=== PATIENT | female | born 1995 | race African-American/Black ===

== ENCOUNTER → 2021-07-13 08:07 | Outpatient (BNVA) | payer OTHER, SELFPAY | PROVIDERS: Visit Provider Advanced Practice Midwife | DX: Z32.01 Encounter for pregnancy test, result positive (principal); N92.6 Irregular menstruation, unspecified; R11.0 Nausea; R03.0 Elevated blood-pressure reading, without diagnosis of hypertension; Z3A.00 Weeks of gestation of pregnancy not specified | CPT/HCPCS: 81025; 99202 ==

== ENCOUNTER 2021-07-23 09:39 | Outpatient (REF) | payer OTHER, SELFPAY ==
--- NOTE | ~2021-07-23 | US_ITS ---
EXAMINATION: OBSTETRICAL ULTRASOUND, FIRST TRIMESTER HISTORY: 26-year-old at 9.3 weeks of gestation Viability LMP: 05/18/2021 COMPARISON: None TECHNIQUE: Real time transabdominal imaging with color and M-mode Doppler. FINDINGS: A single, live IUP CRL of 23.8 mm c/w 9.1wks is noted. Heart Rate: 174 beats per minute. Both maternal ovaries are seen and appear normal. GESTATIONAL AGE: 1. GA from LMP: 9.3 wks 2. GA from AUA: 9.1 wks ESTIMATED DATE OF DELIVERY: 1. FATEMEH from LMP: 02/22/2022 2. FATEMEH from AUA: 02/24/2022 US/US OB <= 14 weeks fetus IMPRESSION: 1. Single live IUP 2. Size equals dates 3. Normal ovaries Thank you very much for this referral. This note was generated with a voice recognition program. Please excuse any errors which may have been overlooked during my review of this note. Sometimes these errors may affect the content or meaning of a given sentence.
== END 2021-07-23 09:40 | disposition home or self-care (01) ==
LOC: HO.US 09:39
PROVIDERS: Visit Provider Advanced Practice Midwife
DX: Z34.91 Encounter for supervision of normal pregnancy, unspecified, first trimester (principal); Z3A.09 9 weeks gestation of pregnancy
CPT/HCPCS: 76801

== ENCOUNTER → 2021-07-28 09:40 | Outpatient (BNVA) | payer OTHER, SELFPAY | PROVIDERS: Visit Provider Advanced Practice Midwife | DX: O26.891 Other specified pregnancy related conditions, first trimester (principal); R03.0 Elevated blood-pressure reading, without diagnosis of hypertension; R11.0 Nausea; Z3A.09 9 weeks gestation of pregnancy | CPT/HCPCS: 99212 ==

== ENCOUNTER 2021-08-13 10:33 | Outpatient (REF) | payer OTHER, SELFPAY ==
--- NOTE | ~2021-08-13 | US_ITS ---
EXAMINATION: OBSTETRICAL ULTRASOUND, FIRST TRIMESTER HISTORY: 26-year-old at 12.3 weeks of gestation NT screening COMPARISON: 07/23/2021 TECHNIQUE: Real time transabdominal imaging with color and M-mode Doppler. FINDINGS: A single, live IUP CRL of 55.8 mm c/w 12.2wks is noted. Heart Rate: 143 beats per minute. Normal yolk sac seen. NT was 1.61.mm. NB Present The embryo appears sonographically wnl for this GA. Both maternal ovaries are seen and appear normal. GESTATIONAL AGE: 1. Established GA: 12.3 wks 2. GA from AUA: 12.2 wks ESTIMATED DATE OF DELIVERY: 1. Established FATEMEH: 02/22/2022 2. FATEMEH from AUA: 02/23/2022 US/US OB 1T nuc measure IMPRESSION: 1. A single live IUP 2. Size equals dates 3. NT of 1.6 mm MFM Consultation: I reviewed the ultrasound findings along with significance of NT measurement. The NT of less than 3mm is generally reassuring. However, the sensitivity for T21 detection is only 60%. I reviewed the availability of serum aneuploidy screening which includes cell-free DNA and placental protein based tests. I discussed the sensitivity, false-positive rate, and other limitations associated with each test. I also reviewed the availability of invasive diagnostic tests that are associated small but definite risk of miscarriage. We also reviewed the differences between screening tests and diagnostic tests. After our discussion, she opted for the First trimester screening that is based on cell-free DNA or non-invasive testing (NIPT). The result will be faxed to your office in approximately 7 days. A follow up at 18 weeks for survey has been scheduled. Thank you very much for this referral. Total time 20 minutes. The time spent was devoted to counseling the patient about the disease and diagnosis, coordinating care including reviewing her records, pertinent lab data and studies, as well as discussing diagnostic evaluation and workup, plan therapeutic interventions and future disposition of care. This includes any additional research needed to obtain further information in formulating the plan of care of this patient. This note was generated with a voice recognition program. Please excuse any errors which may have been overlooked during my review of this note. Sometimes these errors may affect the content or meaning of a given sentence.
== END 2021-08-13 10:34 | disposition home or self-care (01) ==
LOC: HO.US 10:33
PROVIDERS: Visit Provider Advanced Practice Midwife
DX: Z36.82 Encounter for antenatal screening for nuchal translucency (principal)
CPT/HCPCS: 76813

== ENCOUNTER 2021-08-19 09:10 | Outpatient (REF) | payer OTHER, SELFPAY ==
[2021-08-19 15:42] LABS: CT PCR NOT DETECTED (Not Detect.); NG PCR NOT DETECTED (Not Detect.)
[2021-08-20 10:01] LABS: BV Int Neg Control Negative (Negative); BV Int Pos Control Positive (Positive)
[2021-09-02 12:36] LABS: HPV 16 RNA DETECTED (NOT DETECTED); HPV mRNA E6/E7 rflx Detected (Not Detected)
== END 2021-08-19 09:11 | disposition home or self-care (01) ==
LOC: HO.LAB 09:10
PROVIDERS: Visit Provider Advanced Practice Midwife
DX: O26.891 Other specified pregnancy related conditions, first trimester (principal); R21 Rash and other nonspecific skin eruption; Z3A.13 13 weeks gestation of pregnancy
CPT/HCPCS: 81003; 87480; 87491; 87510; 87591; 87624; 87625; 87660; 88142; 99212

== ENCOUNTER → 2021-09-24 14:02 | Outpatient (BNVA) | payer OTHER, SELFPAY | PROVIDERS: Visit Provider Advanced Practice Midwife | DX: Z34.82 Encounter for supervision of other normal pregnancy, second trimester (principal); Z3A.18 18 weeks gestation of pregnancy | CPT/HCPCS: 81003; 99212 ==

== ENCOUNTER 2021-10-01 12:37 | Outpatient (REF) | payer OTHER, SELFPAY ==
--- NOTE | ~2021-10-01 | US_ITS ---
EXAMINATION: US OBSTETRICAL CLINICAL INFORMATION: 26-year-old at 19.3 weeks of gestation Screening for anomaly COMPARISON: 08/13/2021 TECHNIQUE: Real-time transabdominal ultrasound was performed using C1-5 megahertz transducer. FINDINGS: A single, active, fetus is seen in transverse presentation. The placenta is anterior without previa, and the amniotic fluid volume is wnl. MEASUREMENTS: 1. Biparietal Diameter: 4.5 cm; 19.5 wks 2. Occipital Frontal Diameter: 6.0 cm 3. Head Circumference: 16.7 cm; 19.3 wks 4. Abdominal Circumference: 14.5 cm; 19.6 wks 5. Femur Length: 2.9 cm; 19.0 wks 6. Humerus Length: 2.8 cm; 19.1 wks 7. Tibia Length: 2.5 cm; 19.1 wks 8. Ulna Length: 2.6 cm; 19.3 wks 9. Lateral ventricle: 0.7 cm 10. Cerebellum: 1.9 cm; 19.2 wks 11. Cisterna Magna: 0.4 cm 12. Nuchal Fold: 4.1 mm 13. Heart Rate: 147 beats per minute Rt ovary: normal Lt ovary: normal Cervical length 4.3 cm on T/A. GESTATIONAL AGE: 1. Established GA: 19.3 wks 2. GA from [facility]: 19.4 wks ESTIMATED DATE OF DELIVERY: 1. Established FATEMEH: 02/22/2022 2. FATEMEH from [facility]: 02/21/2022 ANATOMY: The visualized anatomy includes but not limited to: 1. Cranium: Normal 2. Intracranial anatomy: cavum septum pellucidi, lateral ventricles, choroid plexus, cerebellum, posterior fossa, third and fourth ventricles. 3. face: orbits, lip/palate, profile, nasal bone 4. Heart: four-chamber view of the heart, ventricular septum, foramen ovale, pulmonary vein, left and right outflow tracts, three-vessel view, 3 vessel trachea view, aortic and ductal arches, situs.. 5. Diaphragm: Normal 6. Abdominal wall: Normal 7. Cord Insertion: Normal 8. Spine: Cervical, thoracic, lumbar, sacral. 9. Stomach: Normal size and shape 10. Right Kidney: Normal 11. Left Kidney: Normal 12. 3 vessel cord: Normal 13. Upper extremity: Open hands, fifth digit. 14. Lower extremity: Tibia, fibula, bilateral feet. 15. Bladder: Normal 16. Genitalia: Male, patient aware US/US OB /maternal detail IMPRESSION: 1. Single, living, intrauterine with appropriate biometry. 2. Normal survey DISCUSSION: I reviewed today's ultrasound findings. We discussed the limitations of ultrasound in diagnosing aneuploidy and other congenital abnormalities. I reviewed the differences between screening test and diagnostic test. Amniocentesis was discussed and declined. She was informed that the baseline incidence of congenital abnormalities is approximately 3-5%. Not all these conditions are diagnosable in utero. RECOMMENDATIONS: 1. Follow-up when necessary. Thank you for allowing me to participate in her care. Total time 30 minutes. The time spent was devoted to counseling the patient about the disease and diagnosis, coordinating care including reviewing her records, pertinent lab data and studies, as well as discussing diagnostic evaluation and workup, plan therapeutic interventions and future disposition of care. This includes any additional research needed to obtain further information in formulating the plan of care of this patient. This note was generated with a voice recognition program. Please excuse any errors which may have been overlooked during my review of this note. Sometimes these errors may affect the content or meaning of a given sentence.
[2021-10-01 13:26] LABS: Hematocrit 38.9 % (37.0-47.0); Hemoglobin 12.7 g/dl (12.0-16.0); Mean Corpuscular HGB Conc 32.6 g/dl (31.0-35.0); Mean Corpuscular Hemoglobin 30.9 pg (27.0-33.0); Mean Corpuscular Volume 94.6 fL (80.0-98.0); Mean Platelet Volume 10.8 fL (9.4-12.3); Platelet Count 276 X10*3/uL (160-400); Red Blood Count 4.11 X10*6/uL (4.20-5.50); Red Cell Distribution Width 13.3 % (11.0-16.0); White Blood Count 13.3 X10*3/uL (4.8-10.8)
[2021-10-01 13:54] LABS: Alanine Aminotransferase 17 U/L (0-31); Aspartate Amino Transferase 16 U/L (5-31); Blood Urea Nitrogen 5 mg/dL (9-16); Glucose 1 Hour PP 50gm Dose 79 mg/dL (60-140)
[2021-10-01 14:05] LABS: Amphetamine Screen Urine Not Detected (Not Detect); Barbiturates, Urine Not Detected (Not Detect); Benzodiazepines Screen Urine Not Detected (Not Detect); Cannabinoid Screen Urine Not Detected (Not Detect); Cocaine Screen Urine Not Detected (Not Detect); Fentanyl, urine Not Detected (Not Detect); Opiate Screen Urine Not Detected (Not Detect); Phencyclidine Screen Urine Not Detected (Not Detect)
[2021-10-01 14:15] LABS: Creatinine Urine 36.19 mg/dL; Total Protein Urine Random < 7 mg/dL (<12)
[2021-10-01 14:33] LABS: Syphilis Screen Nonreactive (Nonreactive)
[2021-10-02 18:16] LABS: Rubella IgG Antibody <0.90 Index; Varicella IgG Antibody <135.00 index
[2021-10-04 04:39] LABS: ~HepC Num1 0.07 S/CO (0.00-0.79); ~Hepatitis C Antibody Nonreactive (Nonreactive)
[2021-10-04 04:46] LABS: HBsAGNum1 0.22 S/CO (0.00-0.99); HIV AB/AG Nonreactive (Nonreactive); HIV Num 1 0.05 S/CO (0.00-0.99); Hepatitis B Surface Antigen Negative (Negative)
== END 2021-10-01 12:38 | disposition home or self-care (01) ==
LOC: HO.US 12:37
PROVIDERS: Advanced Practice Midwife; Visit Provider Obstetrics & Gynecology
DX: O35.9XX0 Maternal care for (suspected) fetal abnormality and damage, unspecified, not applicable or unspecified (principal); O26.892 Other specified pregnancy related conditions, second trimester; R51.9 Headache, unspecified; R03.0 Elevated blood-pressure reading, without diagnosis of hypertension; Z3A.19 19 weeks gestation of pregnancy
CPT/HCPCS: 76811; 80307; 84156; 84450; 84460; 84520; 85027; 86762; 86780; 86787; 86803; 86850; 86900; 86901; 87086; 87340; 87389

== ENCOUNTER 2021-12-22 10:07 | Outpatient (REF) | payer OTHER, SELFPAY ==
[2021-12-22 13:25] LABS: Hematocrit 34.5 % (37.0-47.0); Hemoglobin 11.3 g/dl (12.0-16.0); Mean Corpuscular HGB Conc 32.8 g/dl (31.0-35.0); Mean Corpuscular Hemoglobin 29.9 pg (27.0-33.0); Mean Corpuscular Volume 91.3 fL (80.0-98.0); Mean Platelet Volume 10.4 fL (9.4-12.3); Platelet Count 247 X10*3/uL (160-400); Red Blood Count 3.78 X10*6/uL (4.20-5.50); Red Cell Distribution Width 12.9 % (11.0-16.0); White Blood Count 14.1 X10*3/uL (4.8-10.8)
[2021-12-22 13:49] LABS: Alanine Aminotransferase 11 U/L (0-31); Aspartate Amino Transferase 13 U/L (5-31); Blood Urea Nitrogen 6 mg/dL (9-16); Glucose 1 Hour PP 50gm Dose 89 mg/dL (60-140)
[2021-12-22 14:24] LABS: Syphilis Screen Nonreactive (Nonreactive)
[2021-12-22 14:47] LABS: Creatinine Urine 147.61 mg/dL; Protein/Creatinine Ratio, Ur 0.08 (<0.2); Total Protein Urine Random 12 mg/dL (<12)
[2021-12-22 14:51] LABS: Amphetamine Screen Urine Not Detected (Not Detect); Barbiturates, Urine Not Detected (Not Detect); Benzodiazepines Screen Urine Not Detected (Not Detect); Cannabinoid Screen Urine Not Detected (Not Detect); Cocaine Screen Urine Not Detected (Not Detect); Fentanyl, urine Not Detected (Not Detect); Opiate Screen Urine Not Detected (Not Detect); Phencyclidine Screen Urine Not Detected (Not Detect)
== END 2021-12-22 10:08 | disposition home or self-care (01) ==
LOC: HO.LAB 10:07
PROVIDERS: Visit Provider Advanced Practice Midwife
DX: O16.3 Unspecified maternal hypertension, third trimester (principal); O26.899 Other specified pregnancy related conditions, unspecified trimester; O47.9 False labor, unspecified; O36.63X0 Maternal care for excessive fetal growth, third trimester, not applicable or unspecified; R51.9 Headache, unspecified; Z3A.30 30 weeks gestation of pregnancy; Z20.2 Contact with and (suspected) exposure to infections with a predominantly sexual mode of transmission
CPT/HCPCS: 80307; 81003; 84156; 84450; 84460; 84520; 85027; 86780; 90471; 90715; 99212

== ENCOUNTER 2021-12-24 08:36 | Outpatient (REF) | payer OTHER, SELFPAY ==
--- NOTE | ~2021-12-24 | US_ITS ---
EXAMINATION: OBSTETRICAL ULTRASOUND, Follow up HISTORY: 26-year-old at 31.3 weeks of gestation Size date discrepancy COMPARISON: 10/01/2021 TECHNIQUE: Real time transabdominal imaging with color and M-mode Doppler. PRESENTATION: Vertex PLACENTA LOCATION: Anterior without previa AMNIOTIC FLUID: YSABEL 16.7 cm MEASUREMENTS: 1. Biparietal Diameter: 7.9 cm; 31.4 wks 2. Head Circumference: 30.0 cm; 33.2 wks 3. Abdominal Circumference: 27.0 cm; 31.1 wks 4. Femur Length: 6.0 cm; 31.1 wks 5. Heart Rate: 146 beats per minute WEIGHT: EFW: 1732 grams (3 lbs 13 oz) -- 33 %. BIOPHYSICAL PROFILE: Motion: 2 Tone: 2 Breathin Amniotic Fluid: 2 Total score: 8/8 GESTATIONAL AGE: 1. Established GA: 31.3 wks 2. GA from A: 31.6 wks ESTIMATED DATE OF DELIVERY: 1. Established FATEMEH: 02/22/2022 2. FATEMEH from [facility]: 02/19/2022 US/US OB follow up IMPRESSION: 1. A single active fetus is in vertex presentation 2. Size equals dates 3. Reassuring biophysical profile Thank you very much for this referral. This note was generated with a voice recognition program. Please excuse any errors which may have been overlooked during my review of this note. Sometimes these errors may affect the content or meaning of a given sentence.
== END 2021-12-24 08:37 | disposition home or self-care (01) ==
LOC: HO.US 08:36
PROVIDERS: Visit Provider Advanced Practice Midwife
DX: O36.63X0 Maternal care for excessive fetal growth, third trimester, not applicable or unspecified (principal); O26.843 Uterine size-date discrepancy, third trimester; Z3A.31 31 weeks gestation of pregnancy
CPT/HCPCS: 76816

== ENCOUNTER → 2021-12-29 10:19 | Outpatient (BNVA) | payer OTHER, SELFPAY | PROVIDERS: Visit Provider Advanced Practice Midwife | DX: O99.013 Anemia complicating pregnancy, third trimester (principal); D64.9 Anemia, unspecified; Z3A.31 31 weeks gestation of pregnancy | CPT/HCPCS: 81003; 99212 ==

== ENCOUNTER → 2022-01-21 14:27 | Outpatient (BNVA) | payer OTHER, SELFPAY | PROVIDERS: Visit Provider Advanced Practice Midwife | DX: O09.293 Supervision of pregnancy with other poor reproductive or obstetric history, third trimester (principal); Z3A.35 35 weeks gestation of pregnancy | CPT/HCPCS: 81003; 99212 ==

== ENCOUNTER 2022-02-03 12:42 | Outpatient (REF) | payer OTHER, SELFPAY ==
[2022-02-04 04:58] LABS: CT PCR NOT DETECTED (Not Detect.); NG PCR NOT DETECTED (Not Detect.)
== END 2022-02-03 12:43 | disposition home or self-care (01) ==
LOC: HO.LAB 12:42
PROVIDERS: Visit Provider Advanced Practice Midwife
DX: Z34.93 Encounter for supervision of normal pregnancy, unspecified, third trimester (principal)
CPT/HCPCS: 81003; 87081; 87147; 87491; 87591; 99212

== ENCOUNTER → 2022-02-23 11:35 | Outpatient (BNVA) | payer OTHER, SELFPAY | PROVIDERS: Visit Provider Advanced Practice Midwife | DX: Z34.93 Encounter for supervision of normal pregnancy, unspecified, third trimester (principal); Z3A.39 39 weeks gestation of pregnancy | CPT/HCPCS: 99212 ==

== ENCOUNTER 2022-09-29 13:50 | Outpatient (REF) | payer OTHER, SELFPAY | END 2022-09-29 13:51 | disposition home or self-care (01) | LOC: HO.LNP 13:50 | PROVIDERS: Visit Provider Obstetrics & Gynecology | DX: R87.613 High grade squamous intraepithelial lesion on cytologic smear of cervix (HGSIL) (principal); Z32.02 Encounter for pregnancy test, result negative | CPT/HCPCS: 57454; 81025; 88305; 88342; 88360 ==

== ENCOUNTER → 2023-01-12 14:04 | Outpatient (BNVA) | payer OTHER, SELFPAY | PROVIDERS: Visit Provider Obstetrics & Gynecology | DX: Z30.09 Encounter for other general counseling and advice on contraception (principal); N87.1 Moderate cervical dysplasia | CPT/HCPCS: 99212 ==

== ENCOUNTER 2025-02-13 08:31 | Emergency (ER) | payer OTHER, SELFPAY ==
[2025-02-13 08:34] VITALS: BP 140/89; PULSE 91; RESP 18; TEMP 36.4; O2SAT 100; BMI 36.5
--- NOTE | 2025-02-13 08:50 | ED.GENADULT ---
HPI - General Adult General Chief complaint: General Medical Stated complaint: tounge issue black Time Seen by Provider: 02/13/25 08:40 Source: patient Mode of arrival: ambulatory Limitations: no limitations History of Present Illness ED Provider: HPI narrative: Patient presented with discoloration of her tongue, she states his black, and does not like the taste, she has history of GERD and has been using Pepto-Bismol. No other symptoms reported. Related Data Previous Rx's ?Medication ?Instructions ?Recorded omeprazole 20 mg capsule,delayed 20 mg PO DAILY #60 caps 02/13/25 release Allergies Allergy/AdvReac Type Severity Reaction Status Date / Time shellfish derived (SHELLFISH Allergy Unknown DIFFICULTY Verified 02/13/25 08:35 DERIVED) BREATHING pollen Allergy Unknown Unknown Uncoded 01/12/23 14:19 Review of Systems Constitutional: Constitutional: [facility] Past Medical History Medical History HGSIL (high grade squamous intraepithelial dysplasia) hemorrhage Surgical History Hx of bilateral breast reduction surgery Family History Family History Paternal Grandfather Diabetes mellitus Paternal Grandmother Diabetes mellitus Social History Social History Household Members: Family and Children Housing: House Are you a primary acute care registered nurse to a significant other at home: No Do you presently have visiting nurse or other home services: No Alcohol intake: never Patient Tobacco Use Status: Never used Tobacco Agree to transfusion: Yes Do you have a plan to hurt others: No Plan service: No Current occupational status: unemployed Physical Exam ED Vital Signs: Vital Signs - 24 hr 02/13/25 08:34 Temperature 97.5 F Pulse Rate 91 Respiratory Rate 18 Blood Pressure 140/89 H Pulse Oximetry 100 Oxygen Delivery Method Room Air BMI result Body Mass Index 36.5 Const Other: Overall well-appearing, no angioedema of the tongue or lips, she has blackish discoloration to her tongue, uvula midline Speaking full sentences No stridor no wheezing Alert and oriented x4 Medical Decision Making Medical Decision Making MDM Narrative: Patient is on Pepto-Bismol presenting with expected side effect of discoloration, I also instructed her that she will have black stool, no evidence for angioedema, tonsillitis, no risk factors for upper GI lower GI bleed, I did discuss some dietary changes and we will place her on medications for acid reflux Differential Diagnosis Differential Diagnoses: The differential diagnosis associated with the presentation includes (See above) Discharge Plan Discharge Clinical Impression: Acid reflux disease, Medication reaction Patient Disposition: Home, Self-Care Additional Instructions: As discussed Pepto-Bismol can this color body of fluids, also expect to have black stool Meanwhile on starting you on omeprazole 20 mg p.o. at bedtime, we spoke about dietary changes, follow up with the PCP and other issues or concerns come back to the ER Prescriptions: New omeprazole 20 mg capsule,delayed release(DR/EC) 20 mg PO DAILY Qty: 60 0RF Print Language: Yi
[2025-02-13 08:56] VITALS: BP 140/89; PULSE 91; RESP 18; TEMP 36.4; O2SAT 100
--- OUTSIDE RECORDS SUMMARY | 2025-02-13 09:25 | XMS_ITS ---
Author Name [facility] Unknown Results Test Name/Text Value Interpretation Date Range Source GFR/BSA.pred SerPlBld [id number] >90.0 01/04/2025 59 - [facility] BUN SerPl-mCnc 14.0 mg/dL 01/04/2025 8 - [address] BUN/Creat SerPl 20.0 Ratio 01/04/2025 10 - 25 HH CCT Creat SerPl-mCnc 0.7 mg/dL 01/04/2025 0.4 - 1.1 HH CCT Anion Gap Bld-sCnc 10.0 01/04/2025 7 - 17 [facility] Potassium SerPl-sCnc 4.7 mmol/L 01/04/2025 3.4 - 5 .3 [facility] Calcium SerPl-mCnc 8.8 mg/dL 01/04/2025 8.7 - 10.5 [facility] Sodium SerPl-sCnc 139.0 mmol/L 01/04/2025 136 - 14 5 [facility] Chloride SerPl-sCnc 107.0 mmol/L 01/04/2025 98 - 1 07 [facility] Glucose SerPl-mCnc 90.0 mg/dL 01/04/2025 65 - 99 [facility] CO2 SerPl-sCnc 22.0 mmol/L 01/04/2025 22 - 33 HH CCT Magnesium SerPl-mCnc 2.1 mg/dL 01/04/2025 1.6 - 2. 7 [facility] RBC num Bld Auto 4.38 Mil/uL 01/04/2025 4 - 5.4 [facility] Hgb Bld-mCnc 11.8 g/dL 01/04/2025 11.7 - 15.7 [facility] T Basophils/leuk NFr Bld Auto 0.5 % 01/04/2025 [facility] Eosinophil num Bld Auto 0.21 Thou/uL 01/04/2025 0 - 0.7 [facility] Imm Granulocytes num Bld Auto 0.06 Thou/uL 01/04/2025 0 - 0.1 [facility] WBC num Bld Auto 12.3 Thou/uL Above high normal 01/04/2025 4 - 11 [facility] PMV Bld Auto 9.5 fL 01/04/2025 7.5 - 12.5 [facility] MCV RBC Auto 86.0 fL 01/04/2025 80 - 100 [facility] MCHC RBC Auto-mCnc 31.2 g/dL 01/04/2025 30 - 36 [facility] Hct VFr Bld Auto 37.8 % 01/04/2025 35 - 47 HH CCT MCH RBC Qn Auto 26.9 pg 01/04/2025 26 - [address] Neutrophils/leuk NFr Bld Auto 62.8 % 01/04/2025 [facility] Imm Granulocytes/leuk NFr Bld Auto 0.5 % 01/04/2025 [facility] Basophils num Bld Auto 0.06 Thou/uL 01/04/2025 0 - 0.2 [facility] Monocytes num Bld Auto 1.19 Thou/uL 01/04/2025 0.2 - 1.5 [facility] Lymphocytes/leuk NFr Bld Auto 24.8 % 01/04/2025 [facility] Monocytes/leuk NFr Bld Auto 9.7 % 01/04/2025 [facility] Lymphocytes num Bld Auto 3.04 Thou/uL 01/04/2025 1.5 - 4.5 [facility] Eosinophil/leuk NFr Bld Auto 1.7 % 01/04/2025 [facility] RDW RBC Auto-Rto 14.6 % Above high normal 01/04/2025 11.5 - 14.5 [facility] Neutrophils num Bld Auto 7.72 Thou/uL Above high normal 01/04/2025 2 - 7.5 [facility] Platelet num Bld Auto 282.0 Thou/uL 01/04/2025 150 - 450 [facility] History of Medication Use Medication Directions Dispensed Refills Start Date End Date Stat penicillin v potassium (VEETID) 500 MG tablet Take 1 tablet (500 mg total) by mouth 2 (two) times a day. 08/11/2022 09/14/2022 active Problems Problem Status Onset Date Problem Type Date of Resoluti on Source [facility] throat [facility] St[facility] active EncounterDiagnosisAct [facility] Encounter for screening laboratory testing for COVID-19 virus active EncounterDiagnosisAct [facility] Encounters Encounter Type Encounter Reason Primary Diagnosis Location Date Emergency Abnormal uterine and vaginal bleeding, unspecified Abnormal uterine and vaginal bleeding, unspecified [facility] 01/04/2025 Ambulatory Contact with and (suspected) exposure to covid-19 [facility] 09/03/2022 Ambulatory Acute pharyngiti s, unspecified [facility] 08/11/2022 Ambulatory Acute pharyngiti s, unspecified [facility] 08/03/2022 Care Team Organization Name Specialty Phone Email Start Date End [facility] [place] [facility] 11/21/2023 [facility] Ar Viera Primary Care 04/26/2023 024 [facility] PCP,No Primary Care 08/03/2022 02/02/2025 [facility] NO PCP Primary Care 08/03/2022 08/03/2022 [facility] CAROL DELUCA Primary Care 08/01/2022 03/11/[address] [facility] 05/01/2022
--- OUTSIDE RECORDS SUMMARY | 2025-02-13 09:25 | XMS_ITS | Clinical Summary ---
Author Organization Patient Business [facility] Address [address] [place] [address] Care Team Providers Care Digital Computer Operator Name Role Phone Ar Viera MD Primary Care Provider [phone] Allergies No known active allergies Medications No known medications Active Problems Problem Noted Date Diagnosed Date Palpitation 11/01/2024 Hypertension 11/01/2024 Obesity (BMI 30-39.9) 08/03/2023 Vitamin D deficiency 08/03/2023 Encounters Date Type Department Care Team Description 12/12/2024 7:00 AM EDT Ancillary Procedure [facility] Cardiology [facility] [address] [place] [phone] Palpitation; Abnormal ECG 12/02/2024 Telephone [facility] Cardiology [facility] [address] [place] [phone] Cody Ibanez MD Results 11/21/2024 10:30 AM EDT Ancillary Procedure [facility] Cardiology [facility] [address] [place] [phone] Palpitation from Last 3 Months Surgical History Surgery Date Site/Laterality Comments BREAST REDUCTION 2017 PROCEDURE: [place] BREAST REDUCTION OTHER SURGICAL HISTORY N/A PROCEDURE: [place] MULTIFETAL REDUCTION Medical History Medical History Date Comments Obesity DX:Obesity History of severe pre-eclampsia 08/03/2023 DX:History of severe pre-eclampsia Anxiety Lower back pain Family History Medical History Relation Name Comments Diabetes Maternal Grandfather Breast cancer Maternal Grandmother Diabetes Paternal Grandfather Diabetes Paternal Grandmother Relation Name Status Comments Father Alive Maternal Grandfather Maternal Grandmother Mother Alive Paternal Grandfather Paternal Grandmother Social History Tobacco Use Types Packs/Day Years Used Date Smoking Tobacco: Never Smokeless Tobacco: Never Tobacco Cessation:Counseling Given: Not Answered Alcohol Use Standard Drinks/Week Comments Yes 0 (1 standard drink = 0.6 oz pur e alcohol) occ Comments Unknown Sex and Gender Information Value Date Recorded Sex Assigned at Female 07/04/2023 4:48 PM EST Legal Sex Female 9:51 AM EST Gender Identity Female 07/04/2023 4:48 PM EST Sexual Orientation Straight 07/04/2023 4: 48 PM EST Obstetrics History Last Filed Vital Signs Vital Sign Reading Time Taken Comments Blood Pressure 130/90 12/12/2024 7:34 AM EDT Pulse 63 11/01/2024 2:45 PM EDT Temperature - - Respiratory Rate - - Oxygen Saturation 99% 11/01/2024 2:45 PM EDT Inhaled Oxygen Concentration - - Weight 89.4 kg (197 lb) 12/12/2024 7:34 AM EDT Height 157.5 cm (5' 2 ) 12/12/2024 7:34 AM EDT Body Mass Index 36.03 12/12/2024 7:34 AM EDT Plan of Treatment Upcoming Encounters Date Type Department Care Team (Late st Contact Info) Description 03/12/2025 11:30 AM EDT Office Visit Internal Medicine - [place] [facility] [address] [place] [phone] Ar Viera MD [address] [place] [phone] Health Maintenance Due Date Last Done Comments Hepatitis B Vaccines (1 of 3 - 19+ 3-dose series) 2014 Cervical Cancer Screening: P ap Smear 2016 COVID-19 Vaccine (2023-2 5 season) 2024 Depression Screening 07/24/2024 Hypertension/CHF/CAD Annual BMP Blood Test 11/01/2024 08/03/2023 Influenza Vaccine (#1) 2025 9, 2018, 06/04/2015 Social Influencers of Health Screening 10/03/2025 10/03/2024 Cholesterol Screening (Lipid Panel) 08/03/2028 08/03/2023 DTaP,Tdap,and Td Vaccines (3 - Td or Tdap) 12/23/2031 12/22/2021, 04/23/2018 MMR Vaccines Aged Out 02/24/2022, 09/08/2015 No longer eligible based on patient's age to complete this topic HIV Screening Completed 08/03/2023 Hepatitis C Screening Completed 08/03/2023 HIB Vaccines Aged Out No longer eligi ble based on patient's age to complete this topic HPV Vaccines Aged Out No longer eligi ble based on patient's age to complete this topic Hepatitis A Vaccines Aged Out No long er eligible based on patient's age to complete this topic IPV Vaccines Aged Out No longer eligi ble based on patient's age to complete this topic Meningococcal ACWY Vaccine Aged Out N o longer eligible based on patient's age to complete this topic Meningococcal B Vaccine Aged Out No l onger eligible based on patient's age to complete this topic Pneumococcal Vaccine: Pediatrics (0 to 5 Years) and At-Risk Patients (6 to 49 Years) Aged Out No longer eligible b ased on patient's age to complete this topic RSV Immunization Patients Under 20 months Aged Out No longer eligible b ased on patient's age to complete this topic Varicella Vaccines Aged Out No longer eligible based on patient's age to complete this topic Procedures Procedure Name Priority Date/Time Associated Diagnosis Comments TRANSTHORACIC ECHOCARDIOGRAM (TTE) COMPLETE Routine 12/12/2024 7:34 AM EDT Palpitation Abnormal ECG CARDIAC HOLTER MONITOR (REPORT GENERATED IN HOUSE) Routine 11/21/2024 10:42 AM EDT Palpitation HEPATITIS C SCREENING Routine 08/03/2023 HIV SCREENING Routine 08/03/2023 ANNUAL BMP BLOOD TEST Routine 08/03/2023 LIPID PANEL Routine 08/03/2023 from Last 3 Months or Most Recently Relevant to Health Maintenance Results * (ABNORMAL) TRANSTHORACIC ECHOCARDIOGRAM (TTE) COMPLETE (12/12/2024 7:34 AM EDT) Left Atrium Minor [place] 5.2 cm CV PACS Left Atrium Major [place] 4.8 cm CV PACS LA Area Sys (A2C) 18 cm2 CV PACS LA Area Sys (A4C) 15 cm2 CV PACS LA Volume (BP) 47 mL CV PACS RA Area 11.5 cm2 CV PACS RA 2D Volume 26 mL CV PACS AV Mean Gradient 4 mmHg CV PACS Ao VTI 25.4 cm CV PACS AV Peak Jorje 1.4 m/s CV PACS AV Peak Gradient 8 mmHg CV PACS AV Area Continuity Equation 2.6 cm2 CV PACS AV Area Peak Velocity 2.6 cm2 CV PACS Aortic Sinus Valsalva 2.9 cm CV PACS Ascending Aorta 2.7 cm CV PACS IVC Proximal 1.5 cm CV PACS IVSD 0.8 0.6 - 0.9 cm CV PACS LVIDD 4.4 3.8 - 5.2 cm CV PACS LVIDS 2.7 2.2 - 3.5 cm CV PACS LVOT Diameter 2.0 cm CV PACS LVOT Mean Grad 2 mmHg CV PACS LVOT Peak VTI 21.3 cm CV PACS LVOT Mean Jorje 0.7 m/s CV PACS LVOT Peak Jorje 1.1 m/s CV PACS LVOT Peak Gradient 5 mmHg CV PACS LVPWD 0.8 0.6 - 0.9 cm CV PACS MV E' Tissue Velocity Lateral 16 cm/s CV PACS MV E' Tissue Velocity Septal 10 cm/s CV PACS LVOT Area 3.1 cm2 CV PACS LVOT Stroke Volume 67 mL CV PACS E Wave Deceleration Time 194 119 - 242 ms CV PACS MV Peak A Jorje 0.61 m/s CV PACS MV Peak E Jorje 0.94 m/s CV PACS PV Acceleration Time 144 ms CV PACS PV Peak Velocity 1.3 m/s CV PACS PV Peak Gradient 7 mmHg CV PACS RV Diastolic Basal Dimension 3.5 2.5 - 4.1 cm CV PACS RV S' 15 cm/s CV PACS TAPSE 21 mm CV PACS E/E' Ratio Septal 9 CV PACS E/E' Ratio Averaged 8 CV PACS Relative Wall Thickness ratio 0.36 CV PACS LVOT:AV VTI Index 0.84 CV PACS FS 39 % CV PACS LV Mass 2D 109 g CV PACS LVOT flow 220 mL/s CV PACS AV Velocity Ratio 0.79 CV PACS E/A Ratio 1.5 CV PACS E/E' Ratio Lateral 6 CV PACS BSA 1.98 m2 CV PACS LA Volume Index (BP) 25 mL/m2 CV PACS LVIDD Index 2.32 cm/m2 CV PACS LVIDS Index 1.42 cm/m2 CV PACS LV Mass Index 2D 58 44 - 88 g/m2 CV PACS LVOT Stroke Index 35 mL/m2 CV PACS RA 2D Volume Index 14(A) 15 - 27 mL/m2 CV PACS CORAL Index (VTI) 1.39 cm2/m2 CV PACS CORAL Index (Pk Jorje) 1.37 cm2/m2 CV PACS Ascending Aorta Index 1.42 cm/m2 CV PACS Est. RA Pressure 3 mmHg CV PACS Anatomical Region Laterality Modality Ultrasound Narrative 12/12/2024 4:24 PM EDT Left Ventricle: Left ventricle cavity size is normal. Wall thickness is normal. Systolic function is normal with an ejection fraction of 60-65%. There are no regional LV wall motion abnormalities. There is no diastolic dysfunction. Left Atrium: Left atrium volume index is normal. Right Ventricle: Right ventricle cavity appears normal. Systolic function is normal. Right Atrium: Right atrium cavity is normal. No hemodynamically significant valvular heart disease. Left Ventricle Left ventricle cavity size is normal. Wall thickness is normal. Systolic function is normal with an ejection fraction of 60-65%. There are no regional LV wall motion abnormalities. There is no diastolic dysfunction. Right Ventricle Right ventricle cavity appears normal. Systolic function is normal. Left Atrium Left atrium volume index is normal. Right Atrium Right atrium cavity is normal. IVC/SVC RA pressures is estimated to be 3 mmHg (IVC diameter <21 mm and decreases >50% during inspiration). Mitral Valve Mitral valve structure is normal. There is trace regurgitation. There is no evidence of mitral valve stenosis. Tricuspid Valve Tricuspid valve structure is normal. There is trace regurgitation. Cannot assess RVSP. Aortic Valve The aortic valve is trileaflet. There is no regurgitation or stenosis. Pulmonic Valve Visualized portions of the pulmonic valve appear normal. There is trace pulmonic valve regurgitation. Ascending Aorta The aorta appears normal in size. Pericardium Pericardium appears normal. Study Details Overall the study quality was adequate. Result [facility] Audrey Olivera NP CV ECHO PROCEDURES Final Resul t * CARDIAC HOLTER MONITOR (REPORT GENERATED IN HOUSE) (11/21/2024 10:42 AM EDT) Anatomical Region Laterality Modality Cardiac Diagnost ic Narrative 11/27/2024 8:34 AM EDT [facility] DIAGNOSTIC TESTING DEPARTMENT [address] [place] [address] TEL: FAX: Type of test: 48 hour Holter Monitor Date of test: 11/21/24 Ordering provider: Cody Ibanez MD Reason for Test: Palpitations Impression: 1: Normal Sinus Rhythm with periods of Sinus Tachycardia. 2: Heart rate range was 50- 146 bpm with an average of 88 bpm. Total time in Sinus Tachycardia was 13 hrs 31 mins. 3: Rare PACs with one atrial pair. Rare PVCs with one 4-beat ventricular run. 4: No pauses noted. Longest R-R 1.3 sec. 5: Diary returned with episodes of palpitations and SOB noted. EKG at those times showed Sinus Rhythm at 73- 112 bpm. One episode had a 4-beat ventricular run. Result [facility] Cody Ibanez MD CV CARDIAC SERVICES PROCEDURES Final Result * Annual BMP Blood Test (08/03/2023) Pathologist [facility], [facility] Annual BMP Blood Test abstracted Historical Provider HEALTH MAINTENANCE Final Result * HIV Screening (08/03/2023) Pathologist [facility] HIV Screening abstracted Result [facility] Historical Provider HEALTH MAINTENANCE Final Result * Hepatitis C Screening (08/03/2023) Hepatitis C Screening abstracted Historical Provider HEALTH MAINTENANCE Final Result * (ABNORMAL) Lipid panel (08/03/2023) LDL/HDL Ratio 4 0 - 4 Triglycerides 93 0 - 150 mg/dL Cholesterol 186 0 - 200 mg/dL HDL 50 >=40 mg/dL LDL Cholesterol 118(A) 0 - 100 mg/dL Blood Venous blood specimen / Unknown Historical Provider LAB BLOOD ORDERABLES Leonor l Result from Last 3 Months or Most Recently Relevant to Health Maintenance Insurance [facility] [place] [phone] Care Teams Digital Computer Operator Relationship Specialty Start Date End Date Ar Viera MD [address] [place] [address] [place] [id number] PCP - General 03/14/23
--- OUTSIDE RECORDS SUMMARY | 2025-02-13 09:25 | XMS_ITS | Clinical Summary ---
Author Organization [facility] Address [address] [place] [id number] Care Team Providers Care Steel Heater Name Role Phone Pcp, No Primary Care Provider Unavailabl e Allergies No known active allergies Medications penicillin v potassium (VEETID) 500 MG tabletIndication s:Strep throat Take 1 tablet (500 mg total) by mouth 2 (two) times a day. 20 tablet 09/03/2022 Active Active Problems No known active problems Encounters Date Type Department Care Team Description 01/04/2025 12:08 AM EDT - 01/04/2025 9:12 AM EDT Emergency [facility] Emergency Department [address] [place] [address] Lio Hampton MD Vaginal bleeding (Primary Dx); S/P LEEP (status post loop electrosurgical excision procedure) Discharge Disposition: Home or Self Care from Last 3 Months Social History Tobacco Use Types Packs/Day Years Used Date Smoking Tobacco: Never Smokeless Tobacco: Never Tobacco Cessation:Counseling Given: Not Answered Alcohol Use Standard Drinks/Week Comments Not Currently 0 (1 standard drink = 0.6 oz pur e alcohol) Comments Unknown Sex and Gender Information Value Date Recorded Sex Assigned at Female 08/03/2022 10:26 AM EST Legal Sex Female 10:23 AM EST Gender Identity Female 08/03/2022 10:26 AM EST Sexual Orientation Heterosexual (straight) 08/03 10:26 AM EST Last Filed Vital Signs Vital Sign Reading Time Taken Comments Blood Pressure 137/71 01/04/2025 7:48 AM EDT Pulse 87 01/04/2025 7:48 AM EDT Temperature 36.4 C (97.5 F) 01/04/2025 5:29 AM EDT Respiratory Rate 18 01/04/2025 7:48 AM EDT Oxygen Saturation 100% 01/04/2025 7:48 AM EDT Inhaled Oxygen Concentration - - Weight 95.3 kg (210 lb) 09/03/2022 11:22 AM EST Height 157.5 cm (5' 2 ) 09/03/2022 11:22 AM EST Body Mass Index 38.41 09/03/2022 11:22 AM EST Plan of Treatment Health Maintenance Due Date Last Done Comments Hepatitis C Virus Screening 1995 HIV Screening 2008 DTaP/Tdap/Td Vaccines (1 - Tdap) 2014 Hepatitis B Vaccines (1 of 3 - 19+ 3-dose series) 2014 Pap Smear (Ages 21-65) 2016 COVID-19 Vaccine ( - 2023-2 5 season) 2024 Influenza Vaccine 02/21/2025 HPV Vaccines Aged Out No longer eligi ble based on patient's age to complete this topic Pneumococcal Vaccine: Pediat selina (0-5 Years) and At-Risk Patients (6 to 49 Years) Aged Out No longer eligible b ased on patient's age to complete this topic Procedures Procedure Name Priority Date/Time Associated Diagnosis Comments POCT , URINE (CHARGE) STAT 01/04/2025 5:26 AM EDT MAGNESIUM STAT 01/04/2025 2:58 AM EDT BASIC METABOLIC PANEL STAT 01/04/2025 2:58 AM EDT COMPLETE BLOOD COUNT, WITH DIFFERENTIAL STAT 01/04/2025 2:58 AM EDT from Last 3 Months Results * POCT , Urine (01/04/2025 5:26 AM EDT) Preg Test, Ur Negative Negative Lot Number Comment:[id number] Complaint Analyst Pass Pass Urine 01/04/2025 5:26 AM EDT us Altagracia Erickson PA-C POINT OF CARE TEST ORDERABLE S Final Result * (ABNORMAL) Complete Blood Count, with Differential (01/04/2025 2:58 AM EDT) White Blood Cell Count 12.3(H) 4.0 - 11.0 Thou/uL 01/04/2025 3:07 AM [facility] Platelet Count 282 150 - 450 Thou/uL 01/04/2025 3:07 AM [facility] Hemoglobin 11.8 11.7 - 15.7 g/dL 01/04/2025 3:07 AM [facility] Hematocrit 37.8 35.0 - 47.0 % 01/04/2025 3:07 AM [facility] Red Blood Cell Count 4.38 4.00 - 5.40 Mil/uL 01/04/2025 3:07 AM [facility] MCV 86 80 - 100 fL 01/04/2025 3:07 AM [facility] MCH 26.9 26.0 - 34.0 pg 01/04/2025 3:07 AM [facility] MCHC 31.2 30.0 - 36.0 g/dL 01/04/2025 3:07 AM [facility] RDW 14.6(H) 11.5 - 14.5 % 01/04/2025 3:07 AM [facility] MPV 9.5 7.5 - 12.5 fL 01/04/2025 3:07 AM [facility] Neutrophils Auto 62.8 % 01/05/20 3:07 AM [facility] Immature Granulocytes 0.5 % 01/04/2025 3:07 AM [facility] Lymphocytes Auto 24.8 % 01/05/20 3:07 AM [facility] Monocytes Auto 9.7 % 01/04/2025 3:07 AM [facility] Eosinophils Auto 1.7 % 01/05/20 3:07 AM [facility] Basophils Auto 0.5 % 01/04/2025 3:07 AM [facility] Abs Neutrophils Auto 7.72(H) 2.00 - 7.50 Thou/uL 01/04/2025 3:07 AM [facility] Abs Immature Granulocytes 0.06 0.00 - 0.10 Thou/uL 01/04/2025 3:07 AM EDT [facility] Abs Lymphocytes Auto 3.04 1.50 - 4.50 Thou/uL 01/04/2025 3:07 AM EDT [facility] Abs Monocytes Auto 1.19 0.20 - 1.50 Thou/uL 01/04/2025 3:07 AM EDT [facility] Abs Eosinophils Auto 0.21 0.00 - 0.70 Thou/uL 01/04/2025 3:07 AM EDT [facility] Abs Basophils Auto 0.06 0.00 - 0.20 Thou/uL 01/04/2025 3:07 AM EDT [facility] Blood Blood specimen / Unknown 01/04/2025 2:58 AM EDT 01/04/2025 3:02 AM EDT Altagracia Apartment Addaest PA-C LAB BLOOD ORDERABLES Final R esult Performing Organization Address City/[facility]/[place] [address], [address] [address] * Magnesium (01/04/2025 2:58 AM EDT) Magnesium 2.1 1.6 - 2.7 mg/dL 01/04/2025 3:25 AM EDT [facility] Blood Blood specimen / Unknown 01/04/2025 2:58 AM EDT 01/04/2025 3:02 AM EDT 2nd [place] PA-C LAB BLOOD ORDERABLES Final R esult [address] [address], [address] [address] * Basic Metabolic Panel (01/04/2025 2:58 AM EDT) Glucose 90 65 - 99 mg/dL 01/04/2025 3:25 AM EDT [facility] Comment:Fasting: <100 mg/dL, Non-Fasting: <200 mg/dL (ADA 2005) Blood Urea Nitrogen (BUN) 14 8 - 21 mg/dL 01/04/2025 3:25 AM EDT [facility] Creatinine 0.7 0.4 - 1.1 mg/dL 01/04/2025 3:25 AM [facility] eGFR >90 >59 01/04/2025 3:25 AM T [facility] Comment:CKD-EPI (2020) in mL /min/1.73 sq meters. Sodium 139 136 - 145 mmol/L 01/04/2025 3:25 AM EDT [facility] Potassium 4.7 3.4 - 5.3 mmol/L 01/04/2025 3:25 AM T [facility] Chloride 107 98 - 107 mmol/L 01/04/2025 3:25 AM T [facility] CO2 22 22 - 33 mmol/L 01/04/2025 3:25 AM [facility] Anion Gap 10 7 - 17 01/04/2025 3:25 AM [facility] Calcium 8.8 8.7 - 10.5 mg/dL 01/04/2025 3:25 AM [facility] BUN/Creatinine Ratio 20 10.0 - 25.0 Ratio 01/04/2025 3:25 AM [facility] Blood Blood specimen / Unknown 01/04/2025 2:58 AM EDT 01/04/2025 3:02 AM EDT Altagracia Erickson PA-C LAB BLOOD ORDERABLES Final R esult [address] [address], [address] [address] from Last 3 Months Insurance [facility] [address] Care Teams Steel Heater Relationship Specialty Start Date End Date Pcp, No PCP - General General Medicine 08/03/22
== END 2025-02-13 08:58 | disposition home or self-care (01) ==
LOC: HO.ED 08:57
PROVIDERS: Emergency Provider Emergency Medicine; PCP Student in an Organized Health Care Education/Training Program
DX: K21.9 Gastro-esophageal reflux disease without esophagitis (principal); T47.6X5A Adverse effect of antidiarrheal drugs, initial encounter
CPT/HCPCS: 99282; 99283

== ENCOUNTER 2025-03-17 17:23 | Emergency (ER) | payer OTHER, SELFPAY ==
[2025-03-17 17:25] VITALS: BP 162/93; PULSE 85; RESP 16; TEMP 36.6; O2SAT 99; BMI 36.6
--- NOTE | 2025-03-17 17:34 | ED.GENADULT ---
HPI - General Adult General Chief complaint: Headache Stated complaint: right side nape of neck pain Time Seen by Provider: 03/17/25 19:46 Source: patient Limitations: no limitations History of Present Illness ED Provider: Angela Tejeda PA-C HPI narrative: 29-year-old female presents with posterior headache x1 week. Pain primarily right-sided. It begins right posterior neck and radiates up posterior scalp. Pain worse with range of motion of the neck. Associated phonophobia, photophobia. Denies dizziness, nausea vomiting. No history of migraines. Patient states she has been sleeping on an air mattress, which has been very uncomfortable. Patient has been using [id number]-[id number]-[id number] remedies without relief from symptoms. Denies recent cough cold symptoms or fever. Related Data Previous Rx's ?Medication ?Instructions ?Recorded omeprazole 20 mg capsule,delayed 20 mg PO DAILY #60 caps 02/13/25 release ketorolac 10 mg tablet 10 mg PO Q6H PRN pain #20 tabs 03/17/25 methocarbamol 750 mg tablet 1,500 mg (2 x 750 mg) PO Q8H PRN 03/17/25 pain, moderate #24 tabs prochlorperazine maleate 10 mg 10 mg PO Q8H PRN nausea and 03/17/25 tablet (Compazine) vomiting #10 tabs Allergies Allergy/AdvReac Type Severity Reaction Status Date / Time shellfish derived (SHELLFISH Allergy Unknown DIFFICULTY Verified 03/17/25 17:29 DERIVED) BREATHING pollen Allergy Unknown Unknown Uncoded 03/17/25 17:29 Review of Systems Review of Systems: Yes all other systems are reviewed and are negative Constitutional: Constitutional: Denies fatigue, Denies fever(s) and Reports headache(s) Eyes: Eyes: Denies change in vision and Reports photophobia ENT: Denies dizziness, Reports headache(s) and Reports neck pain Cardiovascular: Cardiovascular: Denies chest pain and Denies dyspnea Respiratory: Respiratory: Denies dyspnea Gastrointestinal: Gastrointestinal: Denies abdominal pain, Denies nausea and Denies vomiting Musculoskeletal: Musculoskeletal: Denies back pain, Reports neck pain, Denies numbness, Denies radiating pain into limb and Denies tingling Neurologic: Denies dizziness, Reports headache(s), Denies numbness and Denies tingling Endocrine: Endocrine: Denies fatigue PMFSH Past Medical History Attestation statement: The following information was validated with the patient. Medical History HGSIL (high grade squamous intraepithelial dysplasia) hemorrhage Surgical History Hx of bilateral breast reduction surgery Family History Family History Paternal Grandfather Diabetes mellitus Paternal Grandmother Diabetes mellitus Social History Social History Household Members: Family and Children Housing: House Are you a primary home health aide caregiver to a significant other at home: No Do you presently have visiting nurse or other home services: No Alcohol intake: never Patient Tobacco Use Status: Never used Tobacco Agree to transfusion: Yes Advance Directives: No Advance Directives Information Provided: Yes Do you have a plan to hurt others: No Plan service: No Current occupational status: unemployed Physical Exam ED Vital Signs: Vital Signs - 24 hr 03/17/25 17:25 Temperature 97.8 F Pulse Rate 85 Respiratory Rate 16 Blood Pressure 162/93 H Pulse Oximetry 99 Oxygen Delivery Method Room Air BMI result Body Mass Index 36.6 Const Other: Alert well-appearing Orientation/consciousness: patient oriented x3 Eyes Direct Ophthalmoscopy: photophobia Neck Other: Full range of motion of the neck, pain elicited with range of motion along right posterior neck, painful with palpation of right posterior neck and scalp no swelling no erythema no warmth no deformity Neck: Yes no meningeal signs Resp Effort & Inspection: normal respiratory effort Cardio Other: Normal peripheral perfusion Skin Other: Warm dry no rash Neuro General: patient oriented x3, gait normal, no meningeal signs, no focal motor deficits and CN's II-XI intact bilaterally Psych Other: Cooperative Course Course Course Narrative: Rapid medical examination performed in triage by Tatiana Cerrato PA-C. Patient is a 29 year old assigned female at presenting to the emergency department with right sided headache and neck pain. Detailed physical exam and review of systems are deferred to the director of primary.Labs ordered. Patient placed back in the waiting room pending room availability and results. Medications Administered Discontinued Medications Generic Name Dose Route Start Last Admin Trade Name Freq PRN Reason Stop Dose Admin Dexamethasone 10 mg 03/17/25 20:01 03/17/25 20:29 Dexamethasone 2 Mg Tablet PO 03/17/25 20:02 10 mg ONCE ONE Administration Medical Decision Making Medical Decision Making [facility] Narrative: 29-year-old female presents with posterior headache x1 week. Pain primarily right-sided. It begins right posterior neck and radiates up posterior scalp. Pain worse with range of motion of the neck. Associated phonophobia, photophobia. Denies dizziness, nausea vomiting. No history of migraines. Patient states she has been sleeping on an air mattress, which has been very uncomfortable. Patient has been using [id number]-[id number] remedies without relief from symptoms. Denies recent cough cold symptoms or fever. No chronic issues History: Per patient I have considered the following differential diagnoses: Meningitis, tension headache, migraine, cervical strain Plan: It appears the patient is having a tension type headache with migraine features, from likely sleeping on the air mattress. Thought about meningitis, however she has not had recent illness no fevers, no meningeal signs on exam. We will treat with a migraine cocktail, the patient declines IV treatment here, we will send medications to the pharmacy. Screening labs ordered from triage, no indication for imaging I have independently reviewed the following tests: Labs: Slight leukocytosis, not anemic, no electrolyte abnormality, not Differential Diagnosis Differential Diagnoses: The differential diagnosis associated with the presentation includes See [facility] Admission/Observation Consideration of admission/observation: Escalation of care including admission/observation considered Not applicable Lab Data [facility] Lab Attestation statement: I reviewed the patient's lab results. 03/17/25 18:05 03/17/25 18:05 Labs: Lab Results 03/17/25 Range/Units 18:05 WBC 11.9 H (4.8-10.8) X10*3/uL RBC 4.26 (4.20-5.50) X10*6/uL Hgb 9.9 L (12.0-16.0) g/dl Hct 33.2 L (37.0-47.0) % MCV 77.9 L (80.0-98.0) fL MCH 23.2 L (27.0-33.0) pg MCHC 29.8 L (31.0-35.0) g/dl RDW 15.1 (11.0-16.0) % Plt Count 380 D (160-400) X10*3/uL MPV 9.9 (9.4-12.3) fL Immature Gran % (Auto) 0.6 H (0.0-0.4) % Neut % (Auto) 61.7 (45-73) % Lymph % (Auto) 24.2 (20-40) % [place] % (Auto) 10.8 (2-11) % Eos % (Auto) 2.0 (0-4) % Baso % (Auto) 0.7 (0-2) % Lymph # (Auto) 2.9 (1.2-4.9) X10*3/uL [place] # (Auto) 1.3 H (0.1-1.2) X10*3/uL Eos # (Auto) 0.2 (0.0-0.4) X10*3/uL Baso # (Auto) 0.1 (0.0-0.2) X10*3/uL Abs Immat Gran (auto) 0.07 H (0.00-0.03) X10*3/uL Absolute Neuts (auto) 7.3 (2.0-8.3) x10*3/uL Absolute Nucleated RBC 0.000 (0.0-0.012) X10*3/uL Nucleated RBC % (auto) 0.0 (0.0-0.2) /100WBC Sodium 138 (135-145) mmol/L Potassium 4.3 (3.3-5.1) mmol/L Chloride 108 (96-108) mmol/L Carbon Dioxide 23 (22-29) mmol/L Anion Gap 11 L (12-20) BUN 12 (9-16) mg/dL Creatinine 0.81 (0.5-1.4) mg/dL Estim Creat Clear Calc 107.3 Estimated GFR > 60 Random Glucose 86 (60-115) mg/dL Calcium 9.2 (8.4-10.2) mg/dL Total Bilirubin 0.2 (0.0-1.0) mg/dL AST 23 (5-31) U/L ALT 19 (0-31) U/L Alkaline Phosphatase 85 (39-117) U/L Total Protein 7.6 (6.5-8.0) g/dL Albumin 4.6 (3.5-5.0) g/dL Beta HCG, Quant < 2 mIU/mL Discharge Plan Discharge Clinical Impression: Acute tension headache Patient Disposition: Home, Self-Care Instructions: Tension Headache (ED) Additional Instructions: You are being treated for a tension type headache. See home care instructions. Take the following medications, at the same time. The synergistic effect is what will break the headache cycle. You already received a 1 time dose of steroid, it will persist in your symptoms for several days. Methocarbamol 750 mg Ketorolac 10 mg Compazine 10 mg [id number] Benadryl 25 mg Follow up with your primary care provider as needed. Prescriptions: New methocarbamol 750 mg tablet 1,500 mg PO Q8H PRN (Reason: pain, moderate) Qty: 24 0RF ketorolac 10 mg tablet 10 mg PO Q6H PRN (Reason: pain) Qty: 20 0RF Rx Instructions: maximum total duration of 5 days from all oral, intranasal, or parenteral formulations. Patient received Toradol here in the emergency room prochlorperazine maleate [Compazine] 10 mg tablet 10 mg PO Q8H PRN (Reason: nausea and vomiting) Qty: 10 0RF No Action omeprazole 20 mg capsule,delayed release(DR/EC) 20 mg PO DAILY Qty: 60 0RF Stand Alone Forms: Work/School Release Print Language: Romanian
[2025-03-17 18:09] LABS: MANUAL DIFF FLAG NO
[2025-03-17 18:28] LABS: Alanine Aminotransferase 19 U/L (0-31); Albumin Level 4.6 g/dL (3.5-5.0); Alkaline Phosphatase 85 U/L (39-117); Anion Gap 11 (12-20); Aspartate Amino Transferase 23 U/L (5-31); Blood Urea Nitrogen 12 mg/dL (9-16); Calcium 9.2 mg/dL (8.4-10.2); Carbon Dioxide 23 mmol/L (22-29); Chloride 108 mmol/L (96-108); Creatinine Clr Calc Pharmacy 107.3; Estimated Glomerular Filt Rate > 60; Potassium 4.3 mmol/L (3.3-5.1); Sodium 138 mmol/L (135-145); Total Protein 7.6 g/dL (6.5-8.0)
[2025-03-17 18:30] LABS: Hematocrit 33.2 % (37.0-47.0); Hemoglobin 9.9 g/dl (12.0-16.0); Imm Gran Abs Auto 0.07 X10*3/uL (0.00-0.03); Imm Gran Pct Auto 0.6 % (0.0-0.4); Lymphocytes Absolute Auto 2.9 X10*3/uL (1.2-4.9); Mean Corpuscular HGB Conc 29.8 g/dl (31.0-35.0); Mean Corpuscular Hemoglobin 23.2 pg (27.0-33.0); Mean Corpuscular Volume 77.9 fL (80.0-98.0); NRBC Abs Auto 0.000 X10*3/uL (0.0-0.012); NRBC Pct Auto 0.0 /100WBC (0.0-0.2); Platelet Count 380 X10*3/uL (160-400); Red Blood Count 4.26 X10*6/uL (4.20-5.50); White Blood Count 11.9 X10*3/uL (4.8-10.8)
--- OUTSIDE RECORDS SUMMARY | 2025-03-17 19:56 | XMS_ITS | Clinical Summary ---
Author Organization [facility] Address [address] [place] [id number] Care Team Providers Care Crane Oiler Name Role Phone Pcp, No Primary Care [...] EDT - 01/04/2025 9:12 AM EDT Emergency [facility] Emergency Department [address] [place] [address] Lio Hampton MD Vaginal bleeding (Primary Dx); [...] series) 2014 Pap Smear (Ages 21-65) 2016 HPV Vaccines (1 - 3-dose SCD M series) 2022 COVID-19 Vaccine ( - 2023-2 5 season) 2024 Influenza Vaccine 02/21/2025 Pneumococcal Vaccine: Pediat selina (0-5 Years) and [...] Preg Test, Ur Negative Negative Lot Number Comment:[id number] [place] Pass Urine 01/04/2025 5:26 AM EDT Altagracia ANDERSON-Scarlett POINT OF CARE TEST ORDERABLE S Final Result * (ABNORMAL) Complete Blood Count, with Differential (01/04/2025 2:58 AM EDT) White Blood Cell Count 12.3(H) 4.0 - 11.0 Thou/uL 01/04/2025 3:07 AM [facility] Platelet Count 282 150 - 450 Thou/uL 01/04/2025 3:07 AM [facility] Hemoglobin 11.8 11.7 - 15.7 g/dL 01/04/2025 3:07 AM [facility] Hematocrit 37.8 35.0 - 47.0 % 01/04/2025 3:07 AM [facility] Red Blood Cell Count 4.38 4.00 - 5.40 Mil/uL 01/04/2025 3:07 AM [facility] MCV 86 80 - 100 fL 01/04/2025 3:07 AM [facility] MCH 26.9 26.0 - 34.0 pg 01/04/2025 3:07 AM [facility] MCHC 31.2 30.0 - 36.0 g/dL 01/04/2025 3:07 AM [facility] RDW 14.6(H) 11.5 - 14.5 % 01/04/2025 3:07 AM [facility] MPV 9.5 7.5 - 12.5 fL 01/04/2025 3:07 AM [facility] Neutrophils Auto 62.8 % 01/05/20 3:07 AM [facility] Immature Granulocytes 0.5 % 01/04/2025 3:07 AM [facility] Lymphocytes Auto 24.8 % 01/05/20 3:07 AM [facility] Monocytes Auto 9.7 % 01/04/2025 3:07 AM [facility] Eosinophils Auto 1.7 % 01/05/20 3:07 AM [facility] Basophils Auto 0.5 % 01/04/2025 3:07 AM [facility] Abs Neutrophils Auto 7.72(H) 2.00 - 7.50 Thou/uL 01/04/2025 3:07 AM [facility] Abs Immature Granulocytes 0.06 0.00 - 0.10 Thou/uL 01/04/2025 3:07 AM EDT [facility] Abs Lymphocytes Auto 3.04 1.50 - 4.50 Thou/uL 01/04/2025 3:07 AM EDT [facility] Abs Monocytes Auto 1.19 0.20 - 1.50 Thou/uL 01/04/2025 3:07 AM EDT [facility] Abs Eosinophils Auto 0.21 0.00 - 0.70 Thou/uL 01/04/2025 3:07 AM EDT [facility] Abs Basophils Auto 0.06 0.00 - 0.20 Thou/uL 01/04/2025 3:07 AM EDT [facility] Blood Blood specimen / Unknown 01/04/2025 2:58 AM EDT 01/04/2025 3:02 AM EDT Altagracia Kanshuest PA-C LAB BLOOD ORDERABLES [place] [address], [address] [address] * Magnesium (01/04/2025 2:58 AM EDT) Magnesium 2.1 1.6 - 2.7 mg/dL 01/04/2025 3:25 AM T [facility] Blood Blood specimen / Unknown 01/04/2025 2:58 AM EDT 01/04/2025 3:02 AM EDT Digitour Mediaest PA-C LAB BLOOD ORDERABLES Final R esult [address] [address], [address] [address] * Basic Metabolic Panel (01/04/2025 2:58 AM EDT) Glucose 90 65 - 99 mg/dL 01/04/2025 3:25 AM EDT [facility] Comment:Fasting: <100 mg/dL, Non-Fasting: <200 mg/dL (ADA 2005) Blood Urea Nitrogen (BUN) 14 8 - 21 mg/dL 01/04/2025 3:25 AM EDT [facility] Creatinine 0.7 0.4 - 1.1 mg/dL 01/04/2025 3:25 AM [facility] eGFR >90 >59 01/04/2025 3:25 AM T [facility] Comment:CKD-EPI (2020) in mL /min/1.73 sq meters. Sodium 139 136 - 145 mmol/L 01/04/2025 3:25 AM EDT [facility] Potassium 4.7 3.4 - 5.3 mmol/L 01/04/2025 3:25 AM T [facility] Chloride 107 98 - 107 mmol/L 01/04/2025 3:25 AM [facility] CO2 22 22 - 33 mmol/L 01/04/2025 3:25 AM [facility] Anion Gap 10 7 - 17 01/04/2025 3:25 AM [facility] Calcium 8.8 8.7 - 10.5 mg/dL 01/04/2025 3:25 AM [facility] BUN/Creatinine Ratio 20 10.0 - 25.0 Ratio 01/04/2025 3:25 AM [facility] Blood Blood specimen / Unknown 01/04/2025 2:58 AM EDT 01/04/2025 3:02 AM EDT Altagracia Erickson PA-C LAB BLOOD ORDERABLES Final R esult [facility] [address] [place] [address], [address] [address] from Last 3 Months Insurance [facility] Member Subscriber Plan / Payer (Ef fective 2024-Present) Name:Ara Sumner Relation to Subscriber:Self Name:Ara Sumner Payer ID:Not on file Group ID:Not on file Type:Not on file Address: [address] [place] [id number] [place] [address] Care Teams Crane Oiler Relationship Specialty Start Date End Date Pcp, No PCP - General General Medicine 08/03/22
--- OUTSIDE RECORDS SUMMARY | 2025-03-17 19:56 | XMS_ITS | Clinical Summary ---
Author Organization [facility] Address [address] [place] [address] Care Team Providers Care Mobile Marketing Specialist Name Role Phone Ar Viera MD Primary Care Provider [phone] Allergies No known active allergies Medications No known medications Active Problems Problem Noted Date Diagnosed Date Palpitation 11/01/2024 Hypertension 11/01/2024 Obesity (BMI 30-39.9) 08/03/2023 Vitamin D deficiency 08/03/2023 Surgical History Surgery Date Site/Laterality Comments BREAST REDUCTION 2017 PROCEDURE: [place] BREAST REDUCTION OTHER SURGICAL HISTORY N/A PROCEDURE: [place] MULTIFETAL REDUCTION Medical History Medical History Date [...] Care Team (Late st Contact Info) Description 04/29/2025 11:30 AM EDT Office Visit Internal Medicine - [address] [place] [address] Ar Viera MD [address] [place] [id number] Health Maintenance Due Date Last Done Comments [...] Procedure Name Priority Date/Time Associated Diagnosis Comments HEPATITIS C SCREENING Routine 08/03/2023 HIV SCREENING Routine 08/03/2023 ANNUAL BMP BLOOD TEST Routine 08/03/2023 LIPID PANEL Routine 08/03/2023 from Last 3 Months or Most Recently Relevant to Health Maintenance Results * Annual BMP Blood Test (08/03/2023) [facility] Annual BMP Blood Test abstracted [facility] Provider HEALTH MAINTENANCE Final Result * HIV Screening (08/03/2023) [facility] HIV Screening abstracted [facility] Provider HEALTH MAINTENANCE Final Result * Hepatitis C Screening (08/03/2023) [facility] Hepatitis C Screening abstracted Historical Provider HEALTH MAINTENANCE Final Result * (ABNORMAL) Lipid panel (08/03/2023) [facility] LDL/HDL Ratio 4 0 - 4 Triglycerides 93 0 - 150 mg/dL Cholesterol 186 0 - 200 mg/dL HDL 50 >=40 mg/dL LDL Cholesterol 118(A) 0 - 100 mg/dL Blood Venous blood specimen / Unknown us Historical Provider LAB BLOOD ORDERABLES Leonor l Result from Last 3 Months or Most Recently Relevant to Health Maintenance Insurance [facility] [employer] Care Teams Mobile Marketing Specialist Relationship Specialty Start Date End Date Ar Viera MD [address] [place] [phone] PCP - General 03/14/23
--- OUTSIDE RECORDS SUMMARY | 2025-03-17 19:56 | XMS_ITS | Clinical Summary ---
Author Organization [facility] Address [address] [place] [address] Care Team Providers Care Bruise Trimmer Name Role Phone Unavailable Primary Care Provider Unavailabl e Allergies Active Allergy Reactions Criticality Noted Date Comments Shellfish-Derived Products 3 Medications ulipristal (Lucy) 30 mg tabletIndications :Encounter for emergency contraception Take 1 tablet (30 mg total) by mouth if needed (Take this medication today.). 1 tablet 5 09/25/19 25 2025 Active Lactic Ac-Citric Ac-Pot Bitart (Phexxi) 1.8-1-0.4 % GelIndications:En counter for initial prescription of other contraceptives Insert 1 applicator into the vagina See administration instructions. Insert 1 applicatorful of gel within 1 hour BEFORE intercourse and repeat with each episode of intercourse. 12 applicator 2 09/25/19 Active Active Problems No known active problems Encounters Date Type Department Care Team Description 02/05/[address] [place] [phone] Yaneth Vences, EMERSON Results (+BV) 02/03/2025 11:40 AM EDT Office Visit [address] [place] [phone] Kenny House NP Follow-Up Visit 01/09/[address] [facility] [address] [place] [address] Annette Diamond RN On-call 01/08/[address] [place] [phone] Kenny House NP Question: Nurse Line (Pt requested call back regarding sxs after leep appt. Pt may be reached at the number listed on file) 01/03/[address] [place] [address] Sammi Romo RN On-call 12/30/[address] [place] [address] Glenis Melo NP Results (YVON 2 LEEP pos endocervical margin. Recommend Colposcopy with ECS in 6 months. ) 12/24/2024 10:10 AM EDT Procedure Visit [address] [place] [phone] Glenis Melo NP Procedure - LEEP (YVON II Colop Bx on 11-26-24.) from Last 3 Months Immunizations Immunization Administration Dates Next Due Influenza, injectable, MDCK, preservative free, quadrivalent 06/26/2019 Influenza, injectable, quadrivalent, preservativ e free 2018,06/04/2015 MMR 09/08/2015 Tdap 04/23/2018 Family History Medical History Relation Comments Breast cancer Maternal Grandmother No Known Problems Other No Known Problems Parent No Known Problems Sibling Relation Status Comments Maternal Grandmother Other Parent Sibling Social History Tobacco Use Types Packs/Day Years Used Date Smoking Tobacco: Never Smokeless Tobacco: Never Tobacco Cessation:Counseling Given: Not Answered Alcohol Use Standard Drinks/Week Comments Never 0 (1 standard drink = 0.6 oz pur e alcohol) [id number] Health Literacy Answer Date Recor ded How often do you need to hav e someone help you when you read instructions, pamphlets, or other written material from your doctor or pharmacy? Never 10/31/2024 Social Connection and Isolation Panel Answer Date Recorded In a typical week, how many times do you talk on the phone with family, friends, or neighbors? More than three times a week 10/31/2024 How often do you get togethe r with friends or relatives? More than three times a week 10/31/2024 Attends Spiritism Services Not on file 10/31 Active Member of Clubs or Organizations Not on f ile 10/31/2024 Attends Club or Organization Meetings Not on yolanda e 10/31/2024 Marital Status Not on file 10/31/2024 Overall Financial Resource Strain (CARDIA) Answe r Date Recorded How hard is it for you to pa y for the very basics like food, housing, medical care, and heating? Not hard at all 10/31/2024 PHQ-2 Answer Date Recorded Patient Health Questionnaire-2 Score 0 10/31/2024 [facility] - Occupational Stress Questionnaire Answer Date Recorded Do you feel stress - tense, restless, nervous, or anxious, or unable to sleep at night because your mind is troubled all the time - these days? Not at all 10/31/2024 Exercise Vital Sign Answer Date Recorde d On average, how many days pe r week do you engage in moderate to strenuous exercise (like a brisk walk)? 5 days 10/31/2024 On average, how many minutes do you engage in exercise at this level? 30 min 10/31/2024 Hunger Vital Sign Answer Date Recorded Within the past 12 months, y ou worried that your food would run out before you got the money to buy more. Never true 11/01/19 25 Within the past 12 months, t he food you bought just didn't last and you didn't have money to get more. Never true 10/31/2024 PRAPARE - Transportation Answer Date Re corded In the past 12 months, has l ack of transportation kept you from medical appointments or from getting medications? No 10/22 In the past 12 months, has l ack of transportation kept you from meetings, work, or from getting things needed for daily living? No 10/31/2024 PP Intimate Partner Violence Answer Suhas e Recorded Physically Abused No 04/19/2023 Reproductive coercion No 04/19/2023 Unsafe living situation No 04/19/20 23 Forced to do things No 04/19/2023 E-Cigarette/Vaping History Answer Date Recorded E-Cigarette Use Never User 02/03/2025 Contains THC? N 02/03/2025 Contains Nicotine N 02/03/2025 Vaping Containing CBD? N Vaping Containing Flavoring? N Vaping - Other Substances? Not on file 02/03 Comments No Sex and Gender Information Value Date Recorded Sex Assigned at Female 04/12/2023 9:12 AM CDT Legal Sex Female 1:06 PM CDT Gender Identity Female 04/12/2023 9:12 AM CDT Sexual Orientation Straight 04/12/2023 9: 12 AM CDT Last Filed Vital Signs Vital Sign Reading Time Taken Comments Blood Pressure 131/86 02/03/2025 12:32 PM EDT Pulse 82 02/03/2025 12:32 PM EDT Temperature 36.8 C (98.2 F) 02/03/2025 12:32 PM EDT Respiratory Rate 16 04/19/2023 12:00 PM EDT Oxygen Saturation 94% 04/19/2023 12:00 PM EDT Inhaled Oxygen Concentration - - Weight 88.5 kg (195 lb) 02/03/2025 12:22 PM EDT Height 157.5 cm (5' 2 ) 02/03/2025 12:22 PM EDT Body Mass Index 35.67 02/03/2025 12:22 PM EDT Plan of Treatment Health Maintenance Due Date Last Done Comments HIV Screening 1995 Hepatitis C Screening 1995 Lipid Panel 1995 Hepatitis B Vaccines (1 of 3 - 19+ 3-dose series) 2014 HPV Vaccines (1 - 3-dose SCDM series) 2022 DTaP,Tdap,and Td Vaccines (3 - Td or Tdap) 06/23/2022 12/22/2021, 04/23/2018 3 Month STI Rescreening - Trichomonas 02/05/2025 Influenza Vaccine (#1) 2025 9, 2018, 06/04/2015 Pap Smear 11/01/2027 10/31/2024, 04/23/2022 Cervical Cancer Screening 10/31/2029 HPV/Cotest 10/31/2029 10/31/2024 3 Month STI Rescreening Chlamydia and Gonorrhea Discontinued 10/31/2024, 04/19/2023 Chlamydia Screening Discontinued 10/31/2024, 04/19/2023 Hepatitis A Vaccines Aged Out No long er eligible based on patient's age to complete this topic Procedures Procedure Name Priority Date/Time Associated Diagnosis Comments ORCHARD BV/CV/TV BY APTIMA Routine 02/03/2025 1:10 PM EDT Vaginal discharge Vaginal odor [facility] TISSUE Routine 12/24/2024 12:08 PM EDT Moderate dysplasia of cervix (VYON II) CO INJECTION AA&/STRD PARACERVICAL NERVE Routine 12/24/2024 12:04 PM EDT Moderate dysplasia of cervix (YVON II) CO CONIZATION CERVIX W/WO D&C RPR ELTRD EXC Routine 12/24/2024 12:04 PM EDT Moderate dysplasia of cervix (YVON II) POCT , URINE (PPLM) Routine 12/24/2024 10:47 AM EDT Negative test [facility] TISSUE Routine 11/26/2024 11:08 AM EDT Low grade squamous intraepithelial lesion (LGSIL) at risk for high grade squamous intraepithelial lesion (HGSIL) on cytologic smear of cervix CO COLPOSCOPY CERVIX BX CERVIX & ENDOCRV CURRETAGE Routine 11/26/2024 11:02 AM EDT Low grade squamous intraepithelial lesion (LGSIL) at risk for high grade squamous intraepithelial lesion (HGSIL) on cytologic smear of cervix POCT , URINE (PPLM) Routine 11/26/2024 10:20 AM EDT Encounter for test, result negative [facility] THINPREP IMAGING PAP AND HPV DNA Routine 10/31/2024 5:34 PM EDT Cervical cancer screening ORCHARD APTIMA TRICHOMONAS VAGINALIS Routine 10/31/2024 5:34 PM EDT Routine screening for STI (sexually transmitted infection) ORCHARD CT/GC APTIMA COMBO2 ASSAY Routine 10/31/2024 5:34 PM EDT Routine screening for STI (sexually transmitted infection) Screening for chlamydial disease CHG LEVEL I SURG PATHOLOGY GROSS EXAMINATION ONLY Routine 04/19/2023 11:02 AM EDT Induced CO INJECTION AA&/STRD PARACERVICAL NERVE Routine 04/19/2023 11:02 AM EDT Induced CO INDUCED DILATION & EVACUATION Routine 04/19/2023 11:02 AM EDT Induced ORCHARD CT/GC APTIMA COMBO2 ASSAY Routine 04/19/2023 10:28 AM EDT Routine screening for STI (sexually transmitted infection) POCT HEMOGLOBIN (PPLM) Routine 04/19/2023 10:02 AM EDT Induced US Routine 04/19/2023 8:59 AM EDT Induced PAP SMEAR Routine 04/23/2022 12:00 AM EDT since 03/17/2015 Results * (ABNORMAL) BV/CV/TV by Aptima (02/03/2025 1:10 PM EDT) Cherelle Species Negative Negative [facility] Cherelle Glabrata Negative Negative [facility] Trichomonas Vaginalis Negative Negative [facility] Comment: Bacterial Vaginosis Positive(A) Negative [facility] Comment: A positive or negative Nucleic Acid Amplification Test (NAAT) result should be interpreted in conjunction with other laboratory and clinical data available to the clinician. A new sample is recommended for invalid or inconclusive results. If clinically indicated, further testing can be performed on a new sample. Test performed at: [facility] CLIA: [id number] [address] [facility] [address] [facility]. [id number] Rosas Samson, PhD, Telecommunications Support Swab Vaginal structure / Unknown 02/03/2025 1:10 PM EDT 02/04/2025 10:36 AM EDT Narrative [facility] - 02/05/2025 7:53 AM EDT Release to patient->Immediate Kenny House NP LAB BODY FLUIDS AND STOOLS ORDER LIGIA Final Result [facility] * Tissue exam (12/24/2024 12:08 PM EDT) CLINICAL INFORMATION [facility] Comment:ICD-10: N87.1 PATHOLOGIST [facility] Comment: Minna Barron M.D./Crystal, Board Certified in Anatomic Pathology and Board Eligible Cytopathology (electronic signature) Consulting Pathologist [facility] [address] [place] [id number] Pathologist Release Date/Time: 12/30/2024 10:44AM A Source [facility] Comment:Cervix, LEEP: A Gross Description [facility] Comment: The container is labeled with patient's name and source LEEP . The specimen is received in 10% neutral buffered formalin and consists of a purple-salvador fragment of rubbery tissue measuring 3.0 x 1.3 x 0.8 cm. No cervical os is grossly identified. The surgical resection margin is inked black. The specimen is serially sectioned into 13 pieces and entirely submitted in cassettes A1-A4. 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 See note. Ectocervical and deep margins are negative for CIN2. Biopsy site changes are present. Note: Immunostain for P16 is positive and ki67 proliferation index is high at the endocervical margin, supporting the above diagnosis. All controls show appropriate reactivity. B Source [facility] Comment:Endocervix, curettag e: B GROSS DESCRIPTION [facility] Comment: The container is labeled with patient's name and source ECS . Received in 10% neutral buffered formalin is an endocervical brush with adherent mucoid material measuring 2.6 x 1.4 x 0.2 cm in aggregate. Specimen is submitted entirely in cassette B1. This test was developed and its analytical performance characteristics have been determined by [facility]. It has not been cleared or approved by the U.S. Food and Drug Administration. This assay has been validated pursuant to the CLIA regulations and is used for clinical purposes. B DIAGNOSIS [facility] Comment: Fragments of unremarkable endocervical glandular mucosa and crushed squamous mucosa. See note. Note: Multiple levels examined. Immunostain for P16 is negative and ki67 proliferation index is low, supporting the above diagnosis. All controls show appropriate reactivity. Tissue Cervix uteri structure / Unknown 12/24/2024 12:08 PM EDT 12/25/2024 4:07 AM EDT Narrative Resulting Agency Comment Performing Organization Information: Site ID: [id number] Name: [facility] Anatomic Patholo Address: [address] [place] [phone] Director: Arnold Valentino MD Glenis Melo NP LAB PATHOLOGY ORDERABLES Fi nal Result [facility] * CO CONIZATION CERVIX W/WO D&C RPR ELTRD EXC, CO INJECTION AA&/STRD PARACERVICAL NERVE (12/24/2024 12:04 PM EDT) Narrative Glenis Melo NP - 12/24/2024 12:04 PM EDT Glenis Melo NP 12/24/2024 12:10 PM LEEP Date/Time: 12/24/2024 12:04 PM Performed by: Glenis Melo NP Authorized by: Glenis Melo NP Procedure performed: conization of cervix w/ LEEP, no colposcopy Procedure indications: Reason for Cryo/LEEP procedure: YVON 2 Assessment of eligibility for procedure: It is reasonably certain the patient is not : Yes Confirmed patient has no contraindications to procedure Patient has IUD in place: No Special conditions for procedure: No Consent: Confirmed that informed consent was obtained Patient questions answered Patient agrees, verbalizes understanding, and wants to proceed Time-out: Time-out performed prior to procedure to confirm correct patient identity, site, and procedure Procedure: Acetic acid applied: No Lugol's applied: Yes Colposcopic visualization: No Local anesthesia: intracervical block Local anesthetic: Lidocaine with epinephrine Anesthetic strength (%): 1 Epinephrine strength: 1:100,000 Volume (mL): 10 LEEP performed under colposcopic guidance: No Loop electrode size (cm): 1.5 x 1.5 Power (haro): 48 Output mode: blend Number of passes required to complete procedure: 1 Sections removed: transformation zone Endocervical sampling: ECS with cytobrush Estimated blood loss: minimal blood loss Hemostasis obtained with: ball cautery and Monsel's solution Ball cautery power (haro): 40 Complications: none Post-procedure: Patient tolerated procedure: Well Comments: Await biopsy results to determine plan. us Glenis Melo BOUFFANT CURTAIN MACHINE TENDER IN CLINIC/BEDSIDE ORDERABLE S Final Result * POCT , Urine (PPLM) (12/24/2024 10:47 AM EDT) Preg Test, Ur Negative Negative [facility] INTERNAL CONTROL Pass [facility] Urine 12/24/2024 10:4 7 AM EDT us Glenis Melo BOUFFANT CURTAIN MACHINE TENDER POINT OF CARE TEST ENTER/ED IT ORDERABLES Final Result [address] [id number], * CT/GC APTIMA Combo 2 Assay (10/31/2024 5:34 PM EDT) Source Vaginal swab [facility] Chlamydia Not Detected Not Detected [facility] Gonorrhea Not Detected Not Detected [facility] Comment: A positive or negative CT or NG Nucleic Acid Amplification Test (NAAT) result should be interpreted in conjunction with other laboratory and clinical data available to the clinician. A new sample is recommended for invalid or inconclusive results. If clinically indicated, further testing can be performed on a new sample. Test performed at: [facility] CLIA: [id number] [address] [facility] [address] [facility]. [address] Aydee Hunter MD, Telecommunications Support Vaginal Swab Vaginal structure / Unknown 10/31/2024 5:34 PM EDT 11/04/2024 11:[address] [facility] - 11/07/2024 7:07 AM EDT Vaginal swab Audreybraulio Beauchamp NP LAB BODY FLUIDS AND STOOLS OR DERABLES Final Result [facility] * (ABNORMAL) ThinPrep Imaging Pap and HPV DNA (10/31/2024 5:34 PM EDT) CLINICAL INFORMATION [facility] Comment:None given LMP: [facility] Comment:[id number] PREV. PAP: [facility] Comment:NONE GIVEN PREV. BX: [facility] Comment:NONE GIVEN SOURCE: [facility] Comment:Cervix STATEMENT OF ADEQUACY: [facility] Comment: Satisfactory for evaluation. Endocervical/transformation zone component present. GENERAL CATEGORIZATION: (A) [facility] Comment:Cytology Results: Ep ithelial Cell Abnormality INTERPRETATION/RES ULT: (A) [facility] Comment: Low Grade Squamous Intraepithelial Lesion, (LSIL), a more advanced lesion may be present COMMENT: [facility] Comment: This Pap test has been evaluated with computer assisted technology. ENGINE DESIGNER: [facility] Comment: DCR, CT(ASCP) CT screening location: [place] [address] PATHOLOGIST: [facility] Comment: Zeenat Moura D.O. Board Certified in Anatomic, Clinical and Cytopathology (electronic signature) Consulting Pathologist [facility] [address] [place] [address] (Always Message) [facility] Comment: EXPLANATORY NOTE: The Pap is a screening test for cervical cancer. It is not a diagnostic test and is subject to false negative and false positive results. It is most reliable when a satisfactory sample, regularly obtained, is submitted with relevant clinical findings and history, and when the Pap result is evaluated along with historic and current clinical information. HPV DNA (High Risk) Detected (A) NOT DETECTED [facility]JEREMY FENG Comment: Detected One or more High Risk HPV types (16,18,31,33, 35,39,45,51,52,56,58,59,66,68) was detected. Methodology: Real Time PCR Swab Cervix uteri structure / Unknown 10/31/2024 5:34 PM EDT 11/02/2024 5:57 AM EDT Narrative Resulting Agency Comment Performing Organization Information: Site ID: [id number] Name: [facility] [place] Address: [address] [place] [address] Dr Feng, [place] Director: Luis James M.D.,PhD Site ID: [id number] Name: [facility] Address: [address] [place] [id number] Director: Dina Stone Audrey Beauchamp NP LAB CYTOLOGY ORDERABLES Final Result [facility] [facility] from Last 3 Months or Most Recently Relevant to Health Maintenance Insurance [facility]
--- OUTSIDE RECORDS SUMMARY | 2025-03-17 19:56 | XMS_ITS | Encounter Summary ---
Author Organization [facility] Address [address] [place] [address] Care Team Providers Care Skin Lifter Bacon Name Role Phone Unavailable Primary Care Provider Unavailabl e Reason for Visit * Reason Onset Date Comments Question: Nurse Line 01/08/2025 Pt requeste d call back regarding sxs after leep appt. Pt may be reached at the number listed on file Encounter Details Date Type Department Care Team ([facility] Contact Info) Description 01/08/[address] [place] [phone] Kenny House NP [address] [place] [address] [place] [id number] Question: Nurse Line (Pt requested call back regarding sxs after leep appt. Pt may be reached at the number listed on file) Social History Tobacco Use Types Packs/Day Years Used Date Smoking Tobacco: Never Cigarettes Smokeless Tobacco: Never Alcohol Use Standard Drinks/Week Comments Never 0 [...] than three times a week 10/31/2024 Attends [employer] Not on file 10/31 Active Member [...] Recorded Patient Health Questionnaire-2 Score 0 10/31/2024 [facility] ional Health - Occupational Stress [...] Answer Date Recorded E-Cigarette Use Never User 12/24/2024 Contains THC? N 12/24/2024 Contains Nicotine N 12/24/2024 Vaping Containing CBD? N Vaping Containing Flavoring? N 09/2024 Vaping - Other Substances? Not on file 12/24 Comments No Sex and Gender Information Value Date Recorded Sex Assigned at Female 04/12/2023 9:12 AM CDT Legal Sex Female 1:06 PM CDT Gender Identity Female 04/12/2023 9:12 AM CDT Sexual Orientation Straight 04/12/2023 9: 12 AM CDT documented as of this encounter Miscellaneous Notes * Telephone Encounter - Leanne Starkey NP - 01/08/2025 3:42 PM EDT APC review: agree with assessment and plan of care as detailed by RN for patient to be seen at ED for heavy bleeding. Leanne Starkey NP * Telephone Encounter - Yaneth Vences RN - 01/08/2025 3:19 PM EDT TC to pt. Pt reports soaking through 2 pads in the last hour and passing a lemon sized blood clot. Pt will report to [facility] ED. Pt denies n/v/f. Pt reports 5/10 cramping pain. Pt has not taken OTC meds and prefers not to take them. Pt denies chance of or UPI. Discussed with pt that soaking 2 pads/ hour and passing lemon sized blood clots warrants an ED visit. Advised pt I could discuss with APC. Pt prefers to go to ED. [facility] ED called x2- phone rings continuously. In review to [facility]. Yaneth Vences RN * Telephone Encounter - Lori Sweeney - 01/08/2025 2:54 PM EDT Pt requesting call back due to pt is having heavy bleeding , clotting from leep procedure * Telephone Encounter - Leanne Starkey NP - 01/08/2025 1:33 PM EDT APC review: in agreement with plan as detailed by RN, to remain on bleeding precautions and follow up if soaking >2 pph or experiencing severe pelvic pain, fever/chills. Leanne Starkey NP * Telephone Encounter - Yaneth Vences RN - 01/08/2025 1:19 PM EDT TC to pt. Pt had LEEP 12/24/24. Pt reports heavy bleeding and clots earlier this week. Pt went to ED Monday01/03/25 [facility]. Pt was told the scab from LEEP had fallen off and caused heavy bleeding. They slowed the bleeding at the ED. Pt was discharged home. Pt states today heavy bleeding again as well as a blood clot. Clot was a little bigger than golf ball size . Pt states the bleeding started 20 minutes ago. Pt denies cramping, n/v/f. Advised pt to put on a fresh pad and monitor bleeding over the next hour. Advised pt to call back if she soaks 2 pads in the next hour. Pt has a f/u appt scheduled 01/21/25. Pt verbalized understanding. In review to [facility]. Yaneth Vences RN * Telephone Encounter - Daniela Walsh - 01/08/2025 1:15 PM EDT Pt requested call back regarding sxs after leep appt. Pt may be reached at the number listed on file documented in this encounter Plan of Treatment Not on file documented as of this encounter Visit Diagnoses Not on filedocumented in this encounter
[2025-03-17 20:58] VITALS: BP 162/93; PULSE 85; RESP 16; TEMP 36.6; O2SAT 99
== END 2025-03-17 21:03 | disposition home or self-care (01) ==
PROVIDERS: Physician Assistant Medical; Emergency Provider Emergency Medicine; PCP Student in an Organized Health Care Education/Training Program
DX: G44.209 Tension-type headache, unspecified, not intractable (principal); M54.2 Cervicalgia; H53.143 Visual discomfort, bilateral
CPT/HCPCS: 36415; 80053; 84702; 85025; 99282; 99283; J8540